=== PATIENT | male | born 1985 | race African-American/Black ===

== ENCOUNTER 2017-02-01 16:32 | Inpatient (IN) | payer OTHER ==
[~2017-02-01] VITALS: Ht 177.8 cm; Wt 82.6 kg
[2017-02-01 19:05] LABS: WHITE BLOOD COUNT 9.6 K/UL (4.5-11.0)
[2017-02-01 19:53] LABS: BUN/CREATININE RATIO 25 (0-10)
[2017-02-02 03:06] LABS: BUN/CREATININE RATIO 16 (0-10)
[2017-02-02 06:59] LABS: WHITE BLOOD COUNT 8.5 K/UL (4.5-11.0)
[2017-02-02 07:01] LABS: HEMOGLOBIN 12.6 gm/dl (14.0-17.5); RED BLOOD COUNT 4.29 M/UL (4.20-5.50)
[2017-02-02 07:23] LABS: BUN/CREATININE RATIO 16 (0-10)
[2017-02-02 11:42] LABS: BUN/CREATININE RATIO 14 (0-10)
[2017-02-02] MEDS ORDERED: LEVEMIR100 UNIT/1 SQ (14:58)
[2017-02-02] MEDS ORDERED: GLUCOPHAGE 500500 MG PO (15:00)
[2017-02-02 15:25] LABS: BUN/CREATININE RATIO 12 (0-10)
== END 2017-02-02 16:40 | disposition left against medical advice (07) | DRG 639 ==
LOC: ER1 16:32 → CCU 22:00 → ZEROF 22:00 → CCU 02-02 05:18
PROVIDERS: Nurse Practitioner Family; ADMIT Internal Medicine
DX: E13.10 Other specified diabetes mellitus with ketoacidosis without coma (principal); Z79.84 Long term (current) use of oral hypoglycemic drugs; Z91.14 Patient's other noncompliance with medication regimen; E87.6 Hypokalemia; R09.02 Hypoxemia; E83.39 Other disorders of phosphorus metabolism
CPT/HCPCS: 36415; 36600; 80048; 80053; 81001; 82803; 82962; 83735; 84100; 85025; 87086; 96361; 96374; 96376; 99284; J1650; J2405; J2765; J3480